=== PATIENT | female | born 1940 | race Caucasian/White ===

== ENCOUNTER 2020-12-26 21:01 | Emergency (ER) | payer BC, OTHER ==
[~2020-12-26] VITALS: Ht 165.1 cm; Wt 99.3 kg
[~2020-12-26 21:01] MED LIST: INSU10VI5; LEVO137T20; LIP20; LISI2.5T48; METF1000; NIFE20CA
[2020-12-26 21:05] VITALS: BP_SYST 215
[2020-12-27 00:06] VITALS: BP_SYST 215
== END 2020-12-27 00:08 | disposition home or self-care (01) ==
LOC: SED 21:01
DX: S61.211A Laceration without foreign body of left index finger without damage to nail, initial encounter (principal); E11.9 Type 2 diabetes mellitus without complications; Z79.899 Other long term (current) drug therapy; Z79.84 Long term (current) use of oral hypoglycemic drugs; W45.8XXA Other foreign body or object entering through skin, initial encounter; Y93.89 Activity, other specified; Y92.89 Other specified places as the place of occurrence of the external cause; Y99.8 Other external cause status
CPT/HCPCS: 99282

== ENCOUNTER 2021-05-30 23:19 | Inpatient (IN) | payer BC, SELFPAY ==
[~2021-05-30] VITALS: Ht 165.1 cm; Wt 103.9 kg
[2021-05-30 23:30] VITALS: BP_SYST 172
[2021-05-31 00:56] LABS: BASOPHILS # (AUTO) 0.1 K/uL (0.0-0.2); BASOPHILS % (AUTO) 2.2 % (0.0-2.0); EOSINOPHILS # (AUTO) 0.2 K/uL (0.0-0.4); EOSINOPHILS % (AUTO) 3.1 % (0.0-4.0); HEMATOCRIT 24.4 % (36-48); LYMPHOCYTES # (AUTO) 1.5 K/uL (1.0-5.5); LYMPHOCYTES % (AUTO) 30.1 % (20.5-51.5); MEAN CORPUSCULAR HEMOGLOBIN 30 pg (27-31); MEAN CORPUSCULAR HGB CONC 33 % (32-36); MEAN CORPUSCULAR VOLUME 93 fL (79.0-98.0); MONOCYTES # (AUTO) 0.4 K/uL (0.0-1.0); MONOCYTES % (AUTO) 7.7 % (1.7-9.3); NEUTROPHILS # (AUTO) 2.9 K/uL (1.8-7.7); NEUTROPHILS % (AUTO) 56.9 % (40.0-70.0); PLATELET COUNT (AUTO) 233 K/uL (130-430); RED BLOOD CELL COUNT(AUTO) 2.62 MIL/uL (4.2-6.2); RED CELL DISTRIBUTION WIDTH 21.3 % (9.0-15.0); WHITE BLOOD COUNT (AUTO) 5.1 K/uL (4.8-10.8)
[2021-05-31 01:12] LABS: ANION GAP 14 (5-15); CALCIUM 8.5 mg/dL (8.4-11.0); CHLORIDE 110 mmol/L (98-107); GLUCOSE 231 mg/dL (70-99); POTASSIUM 4.5 mmol/L (3.5-5.1); SODIUM SERUM 143 mmol/L (136-145); UREA NITROGEN, BLOOD 72 mg/dL (8-21)
[2021-05-31 01:18] LABS: ALANINE AMINOTRANSFERASE 25 U/L (12-78); ALBUMIN 2.4 g/dL (3.4-4.8); ASPARTATE AMINOTRANSFERASE 22 U/L (10-37); TOTAL BILIRUBIN 0.1 mg/dL (0.0-1.0)
[2021-05-31] MEDS ORDERED: PIPERACILLIN/TAZO 4.5 GM in NS 100 ML IV ONE (02:00)
[2021-05-31] MEDS ORDERED: FUROSEMIDE 20 MG/2 ML VIAL IVP ONE (02:00)
[2021-05-31] MEDS ORDERED: NITROGLYCERIN 1 INCH (GM) OINT. TP ONE (02:15)
[2021-05-31] MEDS ORDERED: FUROSEMIDE 40 MG/4 ML VIAL IVP ONE (02:30)
[2021-05-31 04:04] VITALS: BP_SYST 146
[2021-05-31 04:36] LABS: BILIRUBIN,URINE NEGATIVE (NEGATIVE); BLOOD, URINE 2+ (NEGATIVE); CLARITY/URINE CLEAR (CLEAR); COLOR,URINE YELLOW (YELLOW); GLUCOSE,URINE TRACE (NEGATIVE); KETONES,URINE NEGATIVE (NEGATIVE); LEUKOCYTE ESTERASE ,URINE NEGATIVE (NEGATIVE); NITRITE, URINE NEGATIVE (NEGATIVE); PH,URINE 5.5 (5.0-8.0); PROTEIN URINE 2+ (NEGATIVE); UROBILINOGEN,URINE 0.2 (0.2-1.0)
[2021-05-31] MEDS ORDERED: PIPERACILLIN/TAZOBACTAM 4.5 GM/VIAL (ZOSYN) IV ONE (05:14)
[2021-05-31 05:50] LABS: BACTERIA,URINE MODERATE /HPF (None Seen)
[2021-05-31 09:00] VITALS: BP_SYST 133
[2021-05-31 09:50] LABS: THYROID STIMULATING HORMONE 0.83 uIu/mL (0.36-3.74)
[2021-05-31] MEDS ORDERED: DEXTROSE 50% JECT 50 ML DISP.SYRIN IVP PRN (10:15)
[2021-05-31] MEDS: LEVOTHYROXINE SODIUM 0.1 MG TABLET PO SCH (10:23)
[2021-05-31] MEDS: ATORVASTATIN 20 MG TABLET PO SCH (10:23)
[2021-05-31] MEDS: ASPIRIN 81 MG TAB.CHEW PO SCH (10:23)
[2021-05-31] MEDS: LEVOTHYROXINE SODIUM 0.075 MG TABLET PO SCH (10:23)
[2021-05-31 12:00] VITALS: BP_SYST 137
[2021-05-31 15:37] VITALS: BP_SYST 143
[2021-05-31 15:46] LABS: TOTAL IRON BIND. CAPACITY 251 ug/dL (250-450)
[2021-05-31 20:00] VITALS: BP_SYST 138
[2021-06-01] VITALS (8 sets, daily range): BP systolic 131–161
[2021-06-01] MEDS: LEVOTHYROXINE SODIUM 0.075 MG TABLET PO SCH (08:22)
[2021-06-01] MEDS: ASPIRIN 81 MG TAB.CHEW PO SCH (08:22)
[2021-06-01] MEDS: ATORVASTATIN 20 MG TABLET PO SCH (08:22)
[2021-06-01] MEDS: LEVOTHYROXINE SODIUM 0.1 MG TABLET PO SCH (08:22)
[2021-06-01] MEDS: LORazepam 1 MG TABLET PO PRN ×2 (13:24→22:21)
[2021-06-01] MEDS: MIRTAZAPINE 15 MG TABLET PO SCH (20:08)
[2021-06-01] MEDS: INSULIN REGULAR, HUMAN 100 UNITS/ML, 10 ML VIAL (humuLIN R) SUBCUT PRN (21:24)
[2021-06-01] MEDS ORDERED: FUROSEMIDE 40 MG/4 ML VIAL IVP ONE (22:51)
[2021-06-01] MEDS ORDERED: IPRATROPIUM/ALBUTEROL SULFATE 3 ML AMPUL.NEB (DUONEB) INH PRN (23:00)
[2021-06-01] MEDS ORDERED: cloNIDine HCL 0.1 MG TABLET PO PRN (23:00)
[2021-06-01] MEDS ORDERED: LORazepam 2 MG/ML VIAL IVP PRN (23:00)
[2021-06-01] MEDS ORDERED: ONDANSETRON HCL 4 MG/2 ML VIAL IVP PRN (23:00)
[2021-06-01] MEDS ORDERED: methylPREDNISolone SOD SUCC/PF 62.5 MG/ML VIAL IVP ONE (23:45)
[2021-06-02] MEDS ORDERED: SODIUM BICARBONATE 8.4% JECT 50 MEQ/50 ML SYRINGE ONE (01:24)
[2021-06-02] MEDS ORDERED: SODIUM BICARBONATE 8.4% JECT 50 MEQ/50 ML SYRINGE IVP ONE (01:30)
[2021-06-02 01:50] VITALS: BP_SYST 120
[2021-06-02] MEDS: INSULIN REGULAR, HUMAN 100 UNITS/ML, 10 ML VIAL (humuLIN R) SUBCUT PRN ×3 (06:20→16:53)
[2021-06-02 08:01] VITALS: BP_SYST 143
[2021-06-02] MEDS: FUROSEMIDE 40 MG/4 ML VIAL IVP SCH ×2 (09:21→20:33)
[2021-06-02] MEDS: LEVOTHYROXINE SODIUM 0.075 MG TABLET PO SCH (09:21)
[2021-06-02] MEDS: LEVOTHYROXINE SODIUM 0.1 MG TABLET PO SCH (09:21)
[2021-06-02] MEDS: ASPIRIN 81 MG TAB.CHEW PO SCH (09:22)
[2021-06-02] MEDS: ATORVASTATIN 20 MG TABLET PO SCH (09:22)
[2021-06-02 11:15] LABS: ALANINE AMINOTRANSFERASE 19 U/L (12-78); ALBUMIN 2.4 g/dL (3.4-4.8); ANION GAP 12 (5-15); ASPARTATE AMINOTRANSFERASE 37 U/L (10-37); CALCIUM 8.8 mg/dL (8.4-11.0); CHLORIDE 108 mmol/L (98-107); CREATININE 4.52 mg/dL (0.55-1.30); GLUCOSE 292 mg/dL (70-99); PHOSPHORUS 6.7 mg/dL (2.7-4.5); POTASSIUM 5.3 mmol/L (3.5-5.1); SODIUM SERUM 141 mmol/L (136-145); TOTAL BILIRUBIN 0.3 mg/dL (0.0-1.0); UREA NITROGEN, BLOOD 77 mg/dL (8-21)
[2021-06-02 12:01] VITALS: BP_SYST 145
[2021-06-02 12:39] LABS: BASOPHILS % (AUTO) 0.1 % (0.0-2.0); HEMATOCRIT 24.6 % (36-48); HEMOGLOBIN 8.1 g/dL (12.0-16.0); LYMPHOCYTES # (AUTO) 0.6 K/uL (1.0-5.5); LYMPHOCYTES % (AUTO) 10.7 % (20.5-51.5); MEAN CORPUSCULAR HEMOGLOBIN 31 pg (27-31); MEAN CORPUSCULAR HGB CONC 33 % (32-36); MEAN CORPUSCULAR VOLUME 92 fL (79.0-98.0); MONOCYTES # (AUTO) 0.1 K/uL (0.0-1.0); MONOCYTES % (AUTO) 1.2 % (1.7-9.3); NEUTROPHILS # (AUTO) 4.6 K/uL (1.8-7.7); PLATELET COUNT (AUTO) 193 K/uL (130-430); RED BLOOD CELL COUNT(AUTO) 2.66 MIL/uL (4.2-6.2); RED CELL DISTRIBUTION WIDTH 20.6 % (9.0-15.0); WHITE BLOOD COUNT (AUTO) 5.2 K/uL (4.8-10.8)
[2021-06-02] MEDS ORDERED: [UNRECOGNIZED DRUG - OTHER] OT ONE (15:30)
[2021-06-02] MEDS ORDERED: SODIUM POLYSTYRENE SULFONATE 15 GM/60 ML UDBTL PO ONE (15:30)
[2021-06-02] MEDS ORDERED: CIPROFLOXACIN HCL OT ONE (15:30)
[2021-06-02 16:00] VITALS: BP_SYST 146
[2021-06-02] MEDS ORDERED: DEXAMETHASONE SOD PHOS 0.1% EYE OR EAR DROPS OT ONE (16:45)
[2021-06-02] MEDS ORDERED: CIPROFLOXACIN HCL 0.3% EYE DRP 2.5 ML DROPS RIGHT EAR ONE (16:45)
[2021-06-02] MEDS: PIPERACILLIN/TAZO 2.25G/DEX-IS 50 ML IV SCH ×2 (17:40→23:41)
[2021-06-02 19:56] VITALS: BP_SYST 152
[2021-06-02] MEDS: MIRTAZAPINE 15 MG TABLET PO SCH (20:33)
[2021-06-03 00:50] VITALS: BP_SYST 153
[2021-06-03] MEDS: PIPERACILLIN/TAZO 2.25G/DEX-IS 50 ML IV SCH ×3 (05:18→17:08)
[2021-06-03 08:00] VITALS: BP_SYST 149
[2021-06-03] MEDS: LEVOTHYROXINE SODIUM 0.075 MG TABLET PO SCH (09:00)
[2021-06-03] MEDS: ASPIRIN 81 MG TAB.CHEW PO SCH (09:00)
[2021-06-03] MEDS: LEVOTHYROXINE SODIUM 0.1 MG TABLET PO SCH (09:00)
[2021-06-03] MEDS: ATORVASTATIN 20 MG TABLET PO SCH (09:00)
[2021-06-03] MEDS: FUROSEMIDE 40 MG/4 ML VIAL IVP SCH ×2 (09:06→20:47)
[2021-06-03] MEDS: CIPROFLOXACIN HCL 0.3% EYE DRP 2.5 ML DROPS RIGHT EAR SCH ×2 (09:09→20:45)
[2021-06-03] MEDS: DEXAMETHASONE SOD PHOS 0.1% EYE OR EAR DROPS OT SCH ×2 (09:10→20:45)
[2021-06-03 11:48] VITALS: BP_SYST 161
[2021-06-03 15:30] VITALS: BP_SYST 156
[2021-06-03] MEDS: EPOETIN ALFA-EPBX 3,000 UNITS/ML VIAL SUBCUT SCH (17:22)
[2021-06-03 18:10] LABS: BASOPHILS % (AUTO) 0.2 % (0.0-2.0); EOSINOPHILS % (AUTO) 0.5 % (0.0-4.0); HEMATOCRIT 22.8 % (36-48); HEMOGLOBIN 7.5 g/dL (12.0-16.0); LYMPHOCYTES # (AUTO) 1.7 K/uL (1.0-5.5); LYMPHOCYTES % (AUTO) 18.8 % (20.5-51.5); MEAN CORPUSCULAR HEMOGLOBIN 31 pg (27-31); MEAN CORPUSCULAR HGB CONC 33 % (32-36); MEAN CORPUSCULAR VOLUME 92 fL (79.0-98.0); MONOCYTES # (AUTO) 0.5 K/uL (0.0-1.0); MONOCYTES % (AUTO) 5.2 % (1.7-9.3); NEUTROPHILS # (AUTO) 6.9 K/uL (1.8-7.7); NEUTROPHILS % (AUTO) 75.3 % (40.0-70.0); PLATELET COUNT (AUTO) 214 K/uL (130-430); RED BLOOD CELL COUNT(AUTO) 2.47 MIL/uL (4.2-6.2); RED CELL DISTRIBUTION WIDTH 21.2 % (9.0-15.0); WHITE BLOOD COUNT (AUTO) 9.2 K/uL (4.8-10.8)
[2021-06-03 18:33] LABS: ANION GAP 9 (5-15); CALCIUM 8.7 mg/dL (8.4-11.0); CHLORIDE 108 mmol/L (98-107); CREATININE 4.68 mg/dL (0.55-1.30); GLUCOSE 205 mg/dL (70-99); POTASSIUM 4.3 mmol/L (3.5-5.1); SODIUM SERUM 142 mmol/L (136-145); UREA NITROGEN, BLOOD 90 mg/dL (8-21)
[2021-06-03 18:34] LABS: INR 1.1 (0.8-1.2); PROTHROMBIN TIME 11.6 SECS (9.5-12.5)
[2021-06-03 20:00] VITALS: BP_SYST 148
[2021-06-03] MEDS: MIRTAZAPINE 15 MG TABLET PO SCH (20:45)
[2021-06-03] MEDS: PANTOPRAZOLE SODIUM 40 MG TAB PO SCH (20:46)
[2021-06-04] MEDS: PIPERACILLIN/TAZO 2.25G/DEX-IS 50 ML IV SCH ×5 (01:57→23:46)
[2021-06-04 07:25] VITALS: BP_SYST 186
[2021-06-04] MEDS: DEXAMETHASONE SOD PHOS 0.1% EYE OR EAR DROPS OT SCH ×2 (09:00→20:04)
[2021-06-04] MEDS: LEVOTHYROXINE SODIUM 0.075 MG TABLET PO SCH (09:00)
[2021-06-04] MEDS: ATORVASTATIN 20 MG TABLET PO SCH (09:00)
[2021-06-04] MEDS: PANTOPRAZOLE SODIUM 40 MG TAB PO SCH ×2 (09:00→20:03)
[2021-06-04] MEDS ORDERED: MORPHINE 4 MG INJ. 4 MG/ML VIAL IVP PRN (09:00)
[2021-06-04] MEDS: LEVOTHYROXINE SODIUM 0.1 MG TABLET PO SCH (09:00)
[2021-06-04] MEDS: CIPROFLOXACIN HCL 0.3% EYE DRP 2.5 ML DROPS RIGHT EAR SCH ×2 (09:00→20:04)
[2021-06-04] MEDS ORDERED: HYDROcodone/ACETAMIN 5-325 MG TAB (NORCO/ VICODIN) PO PRN (09:00)
[2021-06-04] MEDS: FUROSEMIDE 40 MG/4 ML VIAL IVP SCH ×2 (09:00→20:05)
[2021-06-04] MEDS ORDERED: ePHEDrine sulfate 50 MG/ML VIAL ONE (09:10)
[2021-06-04] MEDS ORDERED: fentaNYL CITRATE/PF 100 MCG/2 ML AMP ONE (09:10)
[2021-06-04] MEDS ORDERED: NS 250 ML IV.SOLN IV ONE (09:10)
[2021-06-04] MEDS ORDERED: NS 100 ML BAG ONE (09:10)
[2021-06-04] MEDS ORDERED: MIDAZOLAM HCL 5 MG/ML VIAL (VERSED) IV ONE (09:10)
[2021-06-04] MEDS ORDERED: NS IRRIG SOLN 1000 ML IR ONE (09:10)
[2021-06-04] MEDS ORDERED: GLYCOPYRROLATE 0.2 MG/ML VIAL ONE (09:10)
[2021-06-04] MEDS ORDERED: METOCLOPRAMIDE HCL 10 MG/2 ML VIAL ONE (09:10)
[2021-06-04] MEDS ORDERED: LIDOCAINE 1% 10 MG/ML, 20 ML MDV ONE (09:10)
[2021-06-04] MEDS ORDERED: SEVOFLURANE 15 MIN GAS INH ONE (09:10)
[2021-06-04] MEDS ORDERED: PHENYLEPHRINE HCL 10 MG/ML VIAL (NEOSYNEPHRINE) ONE (09:10)
[2021-06-04] MEDS ORDERED: HEPARIN SODIUM, PORCINE 10,000 UNITS/ 10 ML VIAL ONE (09:10)
[2021-06-04] MEDS ORDERED: ONDANSETRON HCL 4 MG/2 ML VIAL ONE (09:10)
[2021-06-04] MEDS ORDERED: ONDANSETRON HCL 4 MG/2 ML VIAL IVP PRN (09:15)
[2021-06-04 10:20] VITALS: BP_SYST 162
[2021-06-04 11:02] VITALS: BP_SYST 162
[2021-06-04 12:00] VITALS: BP_SYST 156
[2021-06-04 15:13] LABS: BASOPHILS % (AUTO) 0.4 % (0.0-2.0); EOSINOPHILS # (AUTO) 0.2 K/uL (0.0-0.4); EOSINOPHILS % (AUTO) 2.2 % (0.0-4.0); LYMPHOCYTES # (AUTO) 2.1 K/uL (1.0-5.5); LYMPHOCYTES % (AUTO) 28.1 % (20.5-51.5); MEAN CORPUSCULAR HEMOGLOBIN 30 pg (27-31); MEAN CORPUSCULAR HGB CONC 33 % (32-36); MEAN CORPUSCULAR VOLUME 92 fL (79.0-98.0); MONOCYTES # (AUTO) 0.5 K/uL (0.0-1.0); MONOCYTES % (AUTO) 6.5 % (1.7-9.3); NEUTROPHILS # (AUTO) 4.7 K/uL (1.8-7.7); NEUTROPHILS % (AUTO) 62.8 % (40.0-70.0); PLATELET COUNT (AUTO) 203 K/uL (130-430); RED BLOOD CELL COUNT(AUTO) 2.15 MIL/uL (4.2-6.2); RED CELL DISTRIBUTION WIDTH 21.1 % (9.0-15.0); WHITE BLOOD COUNT (AUTO) 7.5 K/uL (4.8-10.8)
[2021-06-04 15:33] VITALS: BP_SYST 144
[2021-06-04 15:39] LABS: HEMATOCRIT 19.9 % (36-48); HEMOGLOBIN 6.5 g/dL (12.0-16.0)
[2021-06-04 15:43] LABS: ANION GAP 9 (5-15); CHLORIDE 108 mmol/L (98-107); CREATININE 4.98 mg/dL (0.55-1.30); GLUCOSE 191 mg/dL (70-99); POTASSIUM 4.8 mmol/L (3.5-5.1); SODIUM SERUM 141 mmol/L (136-145); UREA NITROGEN, BLOOD 95 mg/dL (8-21)
[2021-06-04] MEDS ORDERED: HEPARIN SODIUM,PORCINE 5,000 UNITS/ML VIAL MC ONE (16:30)
[2021-06-04 20:00] VITALS: BP_SYST 142
[2021-06-04] MEDS: MIRTAZAPINE 15 MG TABLET PO SCH (20:03)
[2021-06-05 00:44] VITALS: BP_SYST 165
[2021-06-05 05:08] LABS: HEPATITIS B SURFACE AG Negative (Negative); HEPATITIS C VIRUS AB <0.1 s/co ratio (0.0-0.9)
[2021-06-05] MEDS: PIPERACILLIN/TAZO 2.25G/DEX-IS 50 ML IV SCH ×5 (06:07→23:56)
[2021-06-05 08:00] VITALS: BP_SYST 188
[2021-06-05] MEDS: CIPROFLOXACIN HCL 0.3% EYE DRP 2.5 ML DROPS RIGHT EAR SCH ×2 (09:57→21:14)
[2021-06-05] MEDS: DEXAMETHASONE SOD PHOS 0.1% EYE OR EAR DROPS OT SCH ×2 (09:57→21:14)
[2021-06-05] MEDS ORDERED: HEPARIN SODIUM,PORCINE 5,000 UNITS/ML VIAL MC ONE (10:00)
[2021-06-05 10:09] LABS: BASOPHILS % (AUTO) 0.7 % (0.0-2.0); EOSINOPHILS # (AUTO) 0.4 K/uL (0.0-0.4); EOSINOPHILS % (AUTO) 5.9 % (0.0-4.0); HEMATOCRIT 27.3 % (36-48); HEMOGLOBIN 9.2 g/dL (12.0-16.0); LYMPHOCYTES # (AUTO) 1.6 K/uL (1.0-5.5); LYMPHOCYTES % (AUTO) 26.9 % (20.5-51.5); MEAN CORPUSCULAR HEMOGLOBIN 30 pg (27-31); MEAN CORPUSCULAR HGB CONC 34 % (32-36); MEAN CORPUSCULAR VOLUME 89 fL (79.0-98.0); MONOCYTES # (AUTO) 0.4 K/uL (0.0-1.0); MONOCYTES % (AUTO) 7.1 % (1.7-9.3); NEUTROPHILS # (AUTO) 3.6 K/uL (1.8-7.7); NEUTROPHILS % (AUTO) 59.4 % (40.0-70.0); PLATELET COUNT (AUTO) 176 K/uL (130-430); RED BLOOD CELL COUNT(AUTO) 3.07 MIL/uL (4.2-6.2); RED CELL DISTRIBUTION WIDTH 19.2 % (9.0-15.0)
[2021-06-05 10:28] LABS: ALANINE AMINOTRANSFERASE 11 U/L (12-78); ALBUMIN 1.9 g/dL (3.4-4.8); ANION GAP 5 (5-15); ASPARTATE AMINOTRANSFERASE 18 U/L (10-37); CALCIUM 7.6 mg/dL (8.4-11.0); CHLORIDE 105 mmol/L (98-107); CREATININE 3.39 mg/dL (0.55-1.30); GLUCOSE 177 mg/dL (70-99); POTASSIUM 4.6 mmol/L (3.5-5.1); SODIUM SERUM 138 mmol/L (136-145); TOTAL BILIRUBIN 0.4 mg/dL (0.0-1.0); UREA NITROGEN, BLOOD 57 mg/dL (8-21)
[2021-06-05 12:00] VITALS: BP_SYST 163
[2021-06-05] MEDS: FUROSEMIDE 40 MG/4 ML VIAL IVP SCH ×2 (12:52→21:15)
[2021-06-05] MEDS: LEVOTHYROXINE SODIUM 0.1 MG TABLET PO SCH (12:52)
[2021-06-05] MEDS: ATORVASTATIN 20 MG TABLET PO SCH (12:52)
[2021-06-05] MEDS: LEVOTHYROXINE SODIUM 0.075 MG TABLET PO SCH (12:52)
[2021-06-05] MEDS: PANTOPRAZOLE SODIUM 40 MG TAB PO SCH ×2 (12:52→21:13)
[2021-06-05 16:18] VITALS: BP_SYST 148
[2021-06-05] MEDS: EPOETIN ALFA-EPBX 3,000 UNITS/ML VIAL SUBCUT SCH (17:40)
[2021-06-05 21:10] VITALS: BP_SYST 158
[2021-06-05] MEDS: MIRTAZAPINE 15 MG TABLET PO SCH (21:13)
[2021-06-06 01:34] VITALS: BP_SYST 146
[2021-06-06] MEDS: PIPERACILLIN/TAZO 2.25G/DEX-IS 50 ML IV SCH (05:51)
[2021-06-06 08:00] VITALS: BP_SYST 194
[2021-06-06] MEDS: LEVOTHYROXINE SODIUM 0.1 MG TABLET PO SCH (08:32)
[2021-06-06] MEDS: PANTOPRAZOLE SODIUM 40 MG TAB PO SCH (08:33)
[2021-06-06] MEDS: LEVOTHYROXINE SODIUM 0.075 MG TABLET PO SCH (08:33)
[2021-06-06] MEDS: ATORVASTATIN 20 MG TABLET PO SCH (08:33)
[2021-06-06] MEDS: CIPROFLOXACIN HCL 0.3% EYE DRP 2.5 ML DROPS RIGHT EAR SCH (08:33)
[2021-06-06] MEDS: DEXAMETHASONE SOD PHOS 0.1% EYE OR EAR DROPS OT SCH (08:34)
[2021-06-06] MEDS: FUROSEMIDE 40 MG/4 ML VIAL IVP SCH (08:37)
[2021-06-06 09:22] LABS: BASOPHILS % (AUTO) 0.4 % (0.0-2.0); EOSINOPHILS # (AUTO) 0.5 K/uL (0.0-0.4); EOSINOPHILS % (AUTO) 7.1 % (0.0-4.0); HEMATOCRIT 32.7 % (36-48); HEMOGLOBIN 11.2 g/dL (12.0-16.0); LYMPHOCYTES # (AUTO) 1.9 K/uL (1.0-5.5); LYMPHOCYTES % (AUTO) 28.5 % (20.5-51.5); MEAN CORPUSCULAR HEMOGLOBIN 30 pg (27-31); MEAN CORPUSCULAR HGB CONC 34 % (32-36); MEAN CORPUSCULAR VOLUME 89 fL (79.0-98.0); MONOCYTES # (AUTO) 0.5 K/uL (0.0-1.0); MONOCYTES % (AUTO) 7.9 % (1.7-9.3); NEUTROPHILS # (AUTO) 3.7 K/uL (1.8-7.7); NEUTROPHILS % (AUTO) 56.1 % (40.0-70.0); PLATELET COUNT (AUTO) 164 K/uL (130-430); RED BLOOD CELL COUNT(AUTO) 3.69 MIL/uL (4.2-6.2); RED CELL DISTRIBUTION WIDTH 18.8 % (9.0-15.0); WHITE BLOOD COUNT (AUTO) 6.6 K/uL (4.8-10.8)
[2021-06-06 09:41] LABS: ALANINE AMINOTRANSFERASE 6 U/L (12-78); ALBUMIN 2.3 g/dL (3.4-4.8); ANION GAP 9 (5-15); ASPARTATE AMINOTRANSFERASE 17 U/L (10-37); CALCIUM 8.3 mg/dL (8.4-11.0); CHLORIDE 101 mmol/L (98-107); CREATININE 3.14 mg/dL (0.55-1.30); GLUCOSE 191 mg/dL (70-99); POTASSIUM 3.7 mmol/L (3.5-5.1); SODIUM SERUM 139 mmol/L (136-145); TOTAL BILIRUBIN 0.4 mg/dL (0.0-1.0); UREA NITROGEN, BLOOD 43 mg/dL (8-21)
[2021-06-06] MEDS ORDERED: NIFEDIPINE 90 MG TABLET.SA (PROCARDIA XL 90 MG) PO ONE (11:30)
[2021-06-06] MEDS ORDERED: NIFE90TA48 PO (11:33)
[2021-06-06] MEDS ORDERED: SSREG SUBCUT (11:35)
[2021-06-06] MEDS ORDERED: MIRT-114 PO (11:35)
[2021-06-06] MEDS ORDERED: PRO40 PO (11:35)
[2021-06-06] MEDS ORDERED: FURO-149 PO (11:44)
[2021-06-06 13:02] VITALS: BP_SYST 158
[2021-06-06 14:05] VITALS: BP_SYST 158
[2021-06-07] MEDS ORDERED: NIFEDIPINE 90 MG TABLET.SA (PROCARDIA XL 90 MG) PO SCH (09:00)
== END 2021-06-06 16:00 | DRG 280 ==
LOC: SED 23:19 → STU 05-31 02:23
PROVIDERS: ADMIT Internal Medicine; ATTEND Internal Medicine
PROC: 5A09357 Assistance with Respiratory Ventilation, Less than 24 Consecutive Hours, Continuous Positive Airway Pressure (ICD-10-PCS; 2021-06-01)
PROC: B518ZZA Fluoroscopy of Superior Vena Cava, Guidance (ICD-10-PCS; 2021-06-04)
PROC: B548ZZA Ultrasonography of Superior Vena Cava, Guidance (ICD-10-PCS; 2021-06-04)
PROC: 30233N1 Transfusion of Nonautologous Red Blood Cells into Peripheral Vein, Percutaneous Approach (ICD-10-PCS; 2021-06-04)
PROC: 5A1D70Z Performance of Urinary Filtration, Intermittent, Less than 6 Hours Per Day (ICD-10-PCS; 2021-06-04)
PROC: 02HV33Z Insertion of Infusion Device into Superior Vena Cava, Percutaneous Approach (ICD-10-PCS; principal; 2021-06-04 07:30)
PROC: 5A1D70Z Performance of Urinary Filtration, Intermittent, Less than 6 Hours Per Day (ICD-10-PCS; 2021-06-05)
DX: I21.4 Non-ST elevation (NSTEMI) myocardial infarction (principal); J96.00 Acute respiratory failure, unspecified whether with hypoxia or hypercapnia; I50.41 Acute combined systolic (congestive) and diastolic (congestive) heart failure; E43 Unspecified severe protein-calorie malnutrition; J18.9 Pneumonia, unspecified organism; N18.6 End stage renal disease; N17.9 Acute kidney failure, unspecified; C64.1 Malignant neoplasm of right kidney, except renal pelvis; I13.2 Hypertensive heart and chronic kidney disease with heart failure and with stage 5 chronic kidney disease, or end stage renal disease; E78.00 Pure hypercholesterolemia, unspecified; E78.5 Hyperlipidemia, unspecified; E03.9 Hypothyroidism, unspecified; E66.01 Morbid (severe) obesity due to excess calories; D63.8 Anemia in other chronic diseases classified elsewhere; F32.A Depression, unspecified; F41.9 Anxiety disorder, unspecified; Z20.822 Contact with and (suspected) exposure to COVID-19; E11.22 Type 2 diabetes mellitus with diabetic chronic kidney disease; Z79.4 Long term (current) use of insulin; Z79.84 Long term (current) use of oral hypoglycemic drugs; Z79.899 Other long term (current) drug therapy; Z79.890 Hormone replacement therapy; Z68.38 Body mass index [BMI] 38.0-38.9, adult; Z80.51 Family history of malignant neoplasm of kidney; Z85.528 Personal history of other malignant neoplasm of kidney; Z90.49 Acquired absence of other specified parts of digestive tract; Z90.5 Acquired absence of kidney; Z99.2 Dependence on renal dialysis
CPT/HCPCS: 36415; 36600; 71045; 76000; 78579; 78580-TC; 80048; 80053; 81000; 82803-TC; 82962; 83036; 83540; 83550; 83735; 83880; 84100; 84443; 84484; 85025; 85610-TC; 85730-TC; 86480; 86706; 86803; 86886; 86900; 86901; 86920; 87070-TC; 87081; 87086; 87340; 90935; 90937; 93005; 93306; 93970; 94640; 94660; 94760; 96365; 96375; 97110-GP; 97163-GP; 97530-GP; 99291; A9539; A9540; C1750; G0378; J1644; J1815; J1940; J1956; J2001; J2060; J2250; J2370; J2405; J2543; J2765; J2930; J3010; J3490; J7050; P9021; Q5106